=== PATIENT | female | born 1960 | race Caucasian/White ===

== ENCOUNTER → 2024-03-06 09:55 | Outpatient (REF) | payer BC, SELFPAY | LOC: CLAB 09:55 | PROVIDERS: ATTENDING PHYSICIAN Physician Assistant Medical | DX: R05.9 Cough, unspecified (principal) | CPT/HCPCS: 87798 ==

== ENCOUNTER → 2024-03-18 10:08 | Outpatient (REF) | payer BC, SELFPAY | LOC: RAD 10:08 | PROVIDERS: ATTENDING PHYSICIAN Physician Assistant Medical | DX: R05.3 Chronic cough (principal) | CPT/HCPCS: 71046 ==